=== PATIENT | male | born 1970 | race Caucasian/White ===

== ENCOUNTER 2018-10-06 09:51 | Emergency (ER) | payer SELFPAY ==
[~2018-10-06] VITALS: Ht 170.2 cm; Wt 91.2 kg
[2018-10-06] MEDS ORDERED: IV NORMAL SALINE 1000ML BAG 1,000 ML IV SCH (10:09)
[2018-10-06] MEDS ORDERED: ASPIRIN CHEWABLE 81 MG TABLET. PO ONE (10:15)
[2018-10-06 10:30] LABS: BASO # 0.1 x10^3/uL (0.0-0.2); BASO % 0 % (0-3); EOS % 0 % (0-3); HEMATOCRIT 46.4 % (39.0-53.0); HEMOGLOBIN 16.1 g/dL (13.0-17.5); LYMPH # 2.2 x10^3/uL (1.0-4.8); LYMPH % 12 % (24-48); MEAN CORPUSCULAR HEMOGLOBIN 33 pg (25-35); MEAN CORPUSCULAR HGB CONC 35 g/dL (31-37); MEAN CORPUSCULAR VOLUME 95 fL (79-100); MONO # 1.6 x10^3/uL (0.0-1.1); MONO % 9 % (0-9); NEUT # 15.2 x10^3uL (1.8-7.7); NEUT % 79 % (31-73); PLATELET COUNT 183 x10^3/uL (140-400); RED BLOOD COUNT 4.86 x10^6/uL (4.30-5.70); RED CELL DISTRIBUTION WIDTH 12.5 % (11.5-14.5); WHITE BLOOD COUNT 19.2 x10^3/uL (4.0-11.0)
[2018-10-06 10:40] LABS: CALCIUM 9.5 mg/dL (8.5-10.1); GFR 80.4; POTASSIUM 4.1 mmol/L (3.5-5.1)
--- NOTE | 2018-10-06 10:41 | EKG ---
[facility] [address] [place] [address] Test Date: 2018-10-06 Test Time: 09:56:46 Pat Name: BREE LUDWIG Department: Room: Gender: [employer]: : 1970 Requested By: MARKY DAVISON Order Number: [id number] Reading MD: Frank Tolentino Measurements Intervals [place] Rate: 97 P: 13 [place]: 140 QRS: 3 QRSD: 88 T: 24 QT: 344 QTc: 441 Interpretive Statements SINUS RHYTHM NO SPECIFIC ECG ABNORMALITIES RI6.01 No previous ECG available for comparison Electronically Signed On 10-11-2018 10:33:16 [employer] by Frank Tolentino
[2018-10-06 10:45] LABS: ALBUMIN 4.4 g/dL (3.4-5.0); ALBUMIN/GLOBULIN RATIO 1.2 (1.0-1.7); MAGNESIUM 2.1 mg/dL (1.8-2.4); TOTAL BILIRUBIN 1.4 mg/dL (0.2-1.0); TOTAL PROTEIN 8.2 g/dL (6.4-8.2)
--- NOTE | 2018-10-06 10:48 | RAD ---
EXAM: CHEST 1 VIEW History: Chest pain COMPARISON: None available. TECHNIQUE: Single portable radiograph of the chest FINDINGS: The cardiac silhouette is unremarkable. The lungs are clear bilaterally. The costophrenic sulci are clear and well demarcated. IMPRESSION: No radiographic evidence of an acute cardiopulmonary process. Electronically signed by: Carlos Eduardo Luu MD (10/06/2018 10:45 AM) [place] [id number]
--- NOTE | 2018-10-06 11:19 | PHYS DOC ---
Past Medical History Past Medical History: Other Additional Past Medical Histor: ADD Past Surgical History: No Surgical History Alcohol Use: None Drug Use: None Adult General Chief Complaint Chief Complaint: RAPID HEART RATE HPI HPI Patient is a 48-year-old male who presents with complaint of rapid heart rate that he states started at about 6 PM last night. Patient states he has a history of similar episodes in the past, especially after getting caffeinated beverages. He states that his symptoms had lasted all way until this morning. He states that he had gone to work and was having some chest discomfort that he rates at about a 6 out of 10. He states at that point he had used his blood pressure cuff to check his heart rate and found his heart rate be in the 160s. He states that he then went home and laid down in bed and had called his primary care doctor's office who had told him to come into the emergency room. He states that prior to arriving to the ER that symptoms had markedly improved and currently his chest discomfort is very mild at a 2 out of 10. He denies having had any nausea, vomiting or diaphoresis. Patient does indicate that he had taken 2 Excedrin prior to onset of symptoms. Review of Systems Review of Systems Constitutional: Denies fever or chills [] Respiratory: Denies cough or shortness of breath [] Cardiovascular: No additional information not addressed in HPI [] GI: Denies abdominal pain, nausea, vomiting or diarrhea [] Integument: Denies rash or skin lesions [] Neurologic: Denies headache, focal weakness or sensory changes [] All other systems were reviewed and found to be within normal limits, except as documented in this note. Current Medications Current Medications Current Medications Medications (Trade) Dose Ordered Sig/Francesca Start Time Stop Time Status Last Admin Dose Admin Aspirin (Children'S Aspirin) 324 mg 1X ONCE 10/06/18 10:15 10/06/18 10:16 DC 10/06/18 10:15 324 MG Sodium Chloride 1,000 ml @ 1,000 mls/hr Q1H 10/06/18 10:09 10/06/18 11:08 DC 10/06/18 10:16 1,000 MLS/HR Allergies Allergies Allergies Coded Allergies Type Severity Reaction Last Updated Verified Penicillins Allergy Intermediate Hives 10/06/18 Yes Physical Exam Physical Exam Constitutional: Well developed, well nourished, no acute distress, non-toxic appearance. [] HENT: Normocephalic, atraumatic, bilateral external ears normal, oropharynx moist, no oral exudates, nose normal. [] Eyes: PERRLA, EOMI, conjunctiva normal, no discharge. [] Neck: Normal range of motion, no tenderness, supple, no stridor. [] Cardiovascular: Regular rate and rhythm [] Lungs & Thorax: Bilateral breath sounds clear to auscultation [] Abdomen: Bowel sounds normal, soft, no tenderness. [] Skin: Warm, dry, no erythema, no rash. [] Extremities: No tenderness, no cyanosis, no clubbing, ROM intact, no edema. [] Neurologic: Alert and oriented X 3, no focal deficits noted. [] Current Patient Data Vital Signs Vital Signs Date Time Temp Pulse Resp B/P (MAP) Pulse Ox O2 Delivery O2 Flow Rate FiO2 10/06/18 09:55 99.1 112 16 153/90 (111) 99 Room Air 99.1 Lab Values Laboratory Tests Test 10/06/18 10:10 White Blood Count 19.2 x10^3/uL (4.0-11.0) H Red Blood Count 4.86 x10^6/uL (4.30-5.70) Hemoglobin 16.1 g/dL (13.0-17.5) Hematocrit 46.4 % (39.0-53.0) Mean Corpuscular Volume 95 fL (79-100) Mean Corpuscular Hemoglobin 33 pg (25-35) Mean Corpuscular Hemoglobin Concent 35 g/dL (31-37) Red Cell Distribution Width 12.5 % (11.5-14.5) Platelet Count 183 x10^3/uL (140-400) Neutrophils (%) (Auto) 79 % (31-73) H Lymphocytes (%) (Auto) 12 % (24-48) L Monocytes (%) (Auto) 9 % (0-9) Eosinophils (%) (Auto) 0 % (0-3) Basophils (%) (Auto) 0 % (0-3) Neutrophils # (Auto) 15.2 x10^3uL (1.8-7.7) H Lymphocytes # (Auto) 2.2 x10^3/uL (1.0-4.8) Monocytes # (Auto) 1.6 x10^3/uL (0.0-1.1) H Eosinophils # (Auto) 0.0 x10^3/uL (0.0-0.7) Basophils # (Auto) 0.1 x10^3/uL (0.0-0.2) Platelet Estimate Pending Sodium Level 138 mmol/L (136-145) Potassium Level 4.1 mmol/L (3.5-5.1) Chloride Level 98 mmol/L (98-107) Carbon Dioxide Level 26 mmol/L (21-32) Anion Gap 14 (6-14) Blood Urea Nitrogen 12 mg/dL (8-26) Creatinine 1.0 mg/dL (0.7-1.3) Estimated GFR (Cockcroft-Gault) 80.4 BUN/Creatinine Ratio 12 (6-20) Glucose Level 112 mg/dL (70-99) H Calcium Level 9.5 mg/dL (8.5-10.1) Magnesium Level 2.1 mg/dL (1.8-2.4) Total Bilirubin 1.4 mg/dL (0.2-1.0) H Aspartate Amino Transferase (AST) 27 U/L (15-37) Alanine Aminotransferase (ALT) 53 U/L (16-63) Alkaline Phosphatase 62 U/L (46-116) Troponin I Quantitative < 0.017 ng/mL (0.000-0.055) TK-Egb-G-Type Natriuretic Peptide 31 pg/mL (0-124) Total Protein 8.2 g/dL (6.4-8.2) Albumin 4.4 g/dL (3.4-5.0) Albumin/Globulin Ratio 1.2 (1.0-1.7) Thyroid Stimulating Hormone (TSH) 1.443 uIU/mL (0.358-3.74) Laboratory Tests 10/06/18 10:10 Laboratory Tests 10/06/18 10:10 EKG EKG [] Interpretation Time: EKG demonstrates normal sinus rhythm with rate of 97. Radiology/Procedures Radiology/Procedures [] Impressions: Chest x-ray demonstrates no acute process. Course & Med Decision Making Course & Med Decision Making Pertinent Labs and Imaging studies reviewed. (See chart for details) [] Dragon Disclaimer Dragon Disclaimer This electronic medical record was generated, in whole or in part, using a voice recognition dictation system. Departure Departure Impression: Primary Impression: Palpitations Additional Impressions: Atypical chest pain Leukocytosis Disposition: HOME, SELF-CARE Condition: STABLE Referrals: JED UNGER (PCP) JAMA MADRID MD Patient Instructions: Chest Pain (Nonspecific), Palpitations, Supraventricular Tachycardia Problem Qualifiers Additional Impressions: Leukocytosis Leukocytosis type: unspecified Qualified Codes: D72.829 - Elevated white blood cell count, unspecified MARKY DAVISON Jr. DO Oct 06, 2018 11:19
[2018-10-06 11:25] VITALS: BP 140/80
[2018-10-06 11:43] LABS: % ATYL 1 % (0-0); % BANDS 1 % (0-9); % LYMPHS 36 % (24-48); % MONOS 1 % (0-10); % SEGS 61 % (35-66); PLT ESTIMATE ADEQUATE (ADEQUATE)
== END 2018-10-06 11:47 | disposition home or self-care (01) ==
LOC: ER 09:51
DX: R00.2 Palpitations (principal); R07.89 Other chest pain; D72.829 Elevated white blood cell count, unspecified; R00.0 Tachycardia, unspecified; Z88.0 Allergy status to penicillin
CPT/HCPCS: 36415; 71045; 80053; 83735; 83880; 84443; 84484; 85007; 85025; 93005; 99284; J7030